=== PATIENT | female | born 1950 | race African-American/Black ===

== ENCOUNTER → 2017-05-21 | Outpatient (CLI) | payer MEDICARE ==
[~2017-05-21] MED LIST: ASPI81TA82 PO; CITRTAB7 PO; HYDR25TA5 PO; LOSA25TA PO; METO25TA3 PO; OMEP20TA39 PO; PERC5TAB12 PO; ZOLP10TA3 PO
--- NOTE | 2017-05-21 11:51 | ECHRPT ---
Indication: CVA/TIA CONCLUSIONS Normal left ventricular size. Wall thickness is normal. The left ventricular systolic function is mildly reduced with an estimated ejection fraction in the range of 45- 50%. Mild mitral valve regurgitation. There is mild tricuspid valve regurgitation. The estimated pulmonary arterial pressure is 47 mmHg. BP: / HR: Rhythm: Sinus MEASUREMENTS (Male / Female) Normal Values Technical Quality:Fair 2D ECHO LV Diastolic Diameter PLAX 4.9 cm 4.2 - 5.9 / 3.9 - 5.3 cm LV Systolic Diameter PLAX 3.7 cm IVS Diastolic Thickness 1.0 cm 0.6 - 1.0 / 0.6 - 0.9 cm LVPW Diastolic Thickness 1.0 cm 0.6 - 1.0 / 0.6 - 0.9 cm LV Relative Wall Thickness 0.4 LVOT Diameter 1.8 cm Aortic Root Diameter 2.8 cm LA Systolic Diameter LX 2.4 cm 3.0 - 4.0 / 2.7 - 3.8 cm M-MODE AV Cusp Separation MM 1.9 cm DOPPLER AV Peak Velocity 131.0 cm/s AV Peak Gradient 6.9 mmHg AV Mean Gradient 4.0 mmHg AV Velocity Time Integral 27.1 cm LVOT Peak Velocity 72.2 cm/s LVOT Peak Gradient 2.1 mmHg LVOT Velocity Time Integral 15.4 cm AV Area Cont Eq vti 1.4 cm AV Area Cont Eq pk 1.4 cm Mitral E Point Velocity 73.1 cm/s Mitral A Point Velocity 80.9 cm/s Mitral E to A Ratio 0.9 LV E' Lateral Velocity 7.4 cm/s Mitral E to LV E' Lateral Ratio 9.9 LV E' Septal Velocity 7.7 cm/s Mitral E to LV E' Septal Ratio 9.5 TR Peak Velocity 304.0 cm/s TR Peak Gradient 37.0 mmHg Right Atrial Pressure 10.0 mmHg Pulmonary Artery Systolic Pressu 47.0 mmHg Right Ventricular Systolic Press 47.0 mmHg PV Peak Velocity 72.9 cm/s PV Peak Gradient 2.1 mmHg FINDINGS LEFT VENTRICLE Normal left ventricular size. Wall thickness is normal. The left ventricular systolic function is mildly reduced with an estimated ejection fraction in the range of 45- 50%. MITRAL VALVE Mild mitral valve regurgitation. TRICUSPID VALVE There is mild tricuspid valve regurgitation. The estimated pulmonary arterial pressure is 47 mmHg. Don Bullard MD, FACC, FSCAI (Electronically Signed) Final Date:21 May 2017 11:49
--- NOTE | 2017-05-21 15:20 | EKG ---
Date Performed: 05/21/2017 Time Performed: 10:06:11 PTAGE: 67 years EKG: SINUS BRADYCARDIA BORDERLINE ECG Compared to prior tracing no significant change PREVIOUS TRACING : 10/15/2001 11.08 DOCTOR: Don Bullard Interpretating Date/Time 05/21/2017 15:19:52
== END ==
LOC: HECH 09:07
PROVIDERS: ATTEND Family Medicine
DX: G45.9 Transient cerebral ischemic attack, unspecified (principal)
CPT/HCPCS: 93005; 93306